=== PATIENT | male | born 1980 | race African-American/Black ===

== ENCOUNTER → 2018-03-22 09:48 | Outpatient (CLI) | payer OTHER, SELFPAY ==
[2018-03-22 11:23] LABS: Free T3, Triiodothyronine Free 3.63 pg/mL (2.77-5.27); T4 Total Thyroxine 7.44 ug/dL (5.5-11.0); T7 (Free Thyroxine Index) 2.96 (1.65-3.89); Triiodothryronine T3 Uptake 39.8 % (23.5-40.5)
[2018-03-22 11:37] LABS: Thyroid Stimulating Hormone 1.22 uIU/mL (0.47-4.68)
[2018-03-23 20:37] LABS: Testosterone, Free 1.33 ng/dL (0.87-5.47)
== END ==
PROVIDERS: PCP Family Medicine; Visit Provider Physician Assistant
DX: N52.9 Male erectile dysfunction, unspecified (principal)
CPT/HCPCS: 36415; 82040; 84270; 84402; 84403; 84436; 84443; 84479; 84481

== ENCOUNTER 2018-08-09 21:07 | Emergency (ER) | payer OTHER, SELFPAY ==
[2018-08-09 21:27] VITALS: BP 207/108; PULSE 114; RESP 18; TEMP 37.1; O2SAT 98; BMI 29.9
--- NOTE | 2018-08-09 21:32 | DI.US.S_ITS ---
PROCEDURE: US ABDOMEN COMPLETE INDICATIONS: EPIGASTRIC PAIN TECHNIQUE: Real-time scanning was performed of the abdominal and retroperitoneal organs, with image documentation. COMPARISON: None. FINDINGS: Liver: Liver is normal in size and homogeneous in echotexture. Gallbladder: Normal. Biliary ducts: Intrahepatic bile ducts are non-dilated. Extrahepatic bile duct caliber measures 6.1 mm. Normal is 6-7 mm or less in diameter, or 10 mm or less post-cholecystectomy. Pancreas: Visualized portions of the pancreas are sonographically normal. Spleen: Spleen is normal in size and homogeneous in echotexture. Kidneys: Kidneys are normal in size and echotexture. Right kidney measures 12.5 cm long; left kidney measures 13.0 cm long. No hydronephrosis or nephrolithiasis. No solid masses. Aorta: Visualized aorta is normal in caliber at less than 3 cm. distal aorta is not seen due to bowel gas. Iliacs: Not seen due to bowel gas IVC: Intrahepatic inferior vena cava is patent. Miscellaneous: No free abdominal fluid. IMPRESSION: Significant portions of the lower abdomen/pelvis are not well visualized due to bowel gas. No source of epigastric pain is seen. Dictated by: Jaison Chopra M.D. on 08/10/2018 at 9:41 Approved by: Jaison Chopra M.D. on 08/10/2018 at 9:42
[2018-08-09] MEDS: SODIUM CHLORIDE 0.9% 1,000 ML 1000 ML IV ×2 (21:49→23:58)
[2018-08-09] MEDS: PANTOPRAZOLE 40 MG VIAL IV (21:49)
[2018-08-09 21:53] LABS: PCO2 VBG 47.4 mmHg (45-50); pH VBG 7.35 (7.31-7.41)
[2018-08-09 21:54] LABS: HCO3 VBG 26 mmol/L (24-28); Oxygen Saturation VBG 56 % (70-75)
[2018-08-09 21:55] LABS: PO2 VBG 31 mmHg (35-45); Total CO2 VBG 28 mmol/L (24-29)
[2018-08-09 21:56] LABS: Add Manual Diff / Slide Review NO; Basophils Percent Auto 0.8 % (0-2); Eosinophils Percent Auto 0.1 % (2-4); Hematocrit 38.4 % (41-53); Hemoglobin 13.2 g/dL (13.5-17.5); Mean Corpuscular HGB Conc 34.2 % (30-36); Mean Corpuscular Hemoglobin 30.5 PG (26-34); Monocytes Percent Auto 7.7 % (3-14); Neutrophils Absolute Auto 6800 /uL (3000-5900); Neutrophils Percent Auto 81.4 % (50-75); Platelet Count 354 X10^3/uL (150-400); Red Blood Cell Count 4.32 X10^6/uL (4.5-5.9); Red Cell Distribution Width 12.5 % (11.6-14.8); White Blood Cell Count 8.3 X10^3/uL (4.5-11.0)
[2018-08-09] MEDS: METOCLOPRAMIDE 10 MG/2 ML INJ IV (21:59)
[2018-08-09 22:06] LABS: Alanine Aminotransferase 41 IU/L (21-72); Albumin 3.2 g/dL (3.5-5.0); Alkaline Phosphatase 78 U/L (38-126); Aspartate Aminotransferase 25 IU/L (17-59); BUN Creatinine Ratio 20.8 (6-22); Bilirubin Total 0.6 mg/dL (0.2-1.3); Blood Urea Nitrogen 25 mg/dL (9-20); Calcium 8.3 mg/dL (8.4-10.2); Carbon Dioxide 25 mmol/L (22-32); Chloride 102 mmol/L (98-107); Estimated Glomerular Filt Rate > 60.0 mL/min (>60); Globulin 3.1 g/dL (1.7-4.1); Glucose 298 mg/dL (70-100); HEMOLYSIS < 15 (0-50); Potassium 4.4 mmol/L (3.4-5.1); Sodium 138 mmol/L (137-145); Total Protein 6.3 g/dL (6.3-8.2)
[2018-08-09 22:07] LABS: Lipase < 10 U/L (23-300)
--- NOTE | 2018-08-09 22:28 | ED_ITS ---
HPI - Abdominal Pain General Chief Complaint: Abdominal Pain Stated Complaint: STOMACH PAIN NAUSEA Time Seen by Provider: 08/09/18 21:10 Source: patient and family Mode of arrival: ambulatory Limitations: no limitations History of Present Illness HPI narrative: 37-year-old nonsmoker presents with and chief complaint of ongoing epigastric pain for the past few days. He denies any provocation but states that a GI cocktail at an outside hospital helped. He has had episodes of nausea and vomiting. He denies any radiation of his pain. He has had similar pain in the past and has been told that he has ulcers and reflux. He denies any change in bowel habits. He has no dysuria, frequency or urgency. He denies any chest pain shortness of breath. He has been to another emergency department twice in the past 2 days and had normal lab work and improvement with a GI cocktail. He presents here today for 2nd opinion MD complaint: abdominal pain Onset (ago): day(s) Pain Consistency: constant Location: epigastric Severity: moderate Quality: cramping Radiation: none Migration to: no migration Relieving factors: medication Exacerbating factors: nothing Context: foreign travel Associated symptoms: nausea and vomiting Related Data Home Medications Medication Instructions Recorded Confirmed albuterol sulfate [Ventolin HFA] #0 11/07/17 prazosin 1 mg PO DAILY #0 01/31/18 Vitamin D3 2 tab PO DAILY 08/09/18 08/09/18 atorvastatin 1 tab PO DAILY 08/09/18 citalopram 30 mg PO DAILY 08/09/18 08/09/18 insulin glargine [Lantus U-100 30 u SC HS 08/09/18 Insulin] Previous Rx's Medication Instructions Recorded omeprazole 40 mg PO Q DAY #90 cap 01/08/17 losartan-hydrochlorothiazide 1 tab PO QDAY #30 tab 06/25/17 metoprolol succinate [Toprol XL] 25 mg PO QDAY #90 ter 11/30/17 [lidocaine patch 5%] 1 TD SEE INSTRUCTIONS #90 12/12/17 cyclobenzaprine 10 mg PO QDAY #90 tab 12/12/17 insulin aspart U-100 [Novolog 15 u SQ TIDCC #6 ea 12/12/17 Flexpen U-100 Insulin] atorvastatin 80 mg PO HS #90 tab 01/08/18 Test Strips - Freestyle str #100 01/31/18 metoprolol succinate 50 mg PO QDAY #90 ter 01/31/18 citalopram 20 mg tablet 30 mg PO QDAY #45 tab 03/08/18 hydrocodone-acetaminophen 1 tab PO Q4-6H PRN #14 tab 08/10/18 ondansetron [Zofran ODT] 4 mg PO Q6H PRN #14 tab 08/10/18 Allergies Allergy/AdvReac Type Severity Reaction Status Date / Time No Known Drug Allergies Allergy Verified 08/09/18 21:26 Review of Systems Review of Systems All systems reviewed & are unremarkable except as noted in HPI and below Constitutional Denies chills, Denies fever(s), Denies lethargy and Denies weakness Eyes Denies change in vision, Denies eye discharge, Denies irritation and Denies loss of vision ENT Ears, Nose, Mouth, and Throat: Denies change in voice, Denies neck pain and Denies sore throat Cardiovascular Denies chest pain, Denies irregular heart rhythm, Denies lightheadedness, Denies palpitations, Denies dyspnea, Denies dyspnea on exertion and Denies orthopnea Respiratory Denies cough, Denies dyspnea, Denies dyspnea on exertion and Denies wheezing Gastrointestinal Gastrointestinal: Reports abdominal pain, Denies change in bowel habits, Denies diarrhea, Reports nausea and Reports vomiting Genitourinary Denies hematuria, Denies flank pain, Denies urinary incontinence and Denies urinary urgency Musculoskeletal Denies neck pain Integumentary/Breasts Denies pruritus, Denies erythema, Denies rash and Denies wounds Neurologic Denies confusion, Denies loss of vision and Denies weakness Psychiatric Denies anxiety, Denies confusion, Denies depression, Denies homicidal ideation and Denies suicidal ideation Endocrine Denies palpitations Hematologic/Lymphatic Denies easy bruising Allergic/Immunologic Denies wheezing PFSH Medical History Chronic back pain (Chronic 2009) Eczema (Chronic 2009) Erectile dysfunction (Chronic) GERD (gastroesophageal reflux disease) (Chronic 2003) Hyperlipidemia (Chronic) Hypertension (Chronic 2006) Migraines (Chronic 2003) PTSD (post-traumatic stress disorder) (Chronic) Retinopathy (Chronic 2014) Type 1 diabetes (Chronic 2004) Shoulder pain (Resolved 2009) Surgical History Status post appendectomy (2000) Family History Brother Age: 40 Diabetes mellitus Hypertension Father Age: 80 COPD (chronic obstructive pulmonary disease) Hypertension Mother Cancer Diabetes mellitus Social History Smoking Status: Never smoker Exam Narrative Exam Narrative: 37-year-old obviously in some discomfort, clutching his epigastrium Initial Vital Signs Initial Vital Signs: Vital Signs Temperature 98.7 F 08/09/18 21:27 Pulse Rate 114 H 08/09/18 21:27 Respiratory Rate 18 08/09/18 21:27 Blood Pressure 207/108 H 08/09/18 21:27 Pulse Oximetry 98 08/09/18 21:27 Const General: cooperative and well developed Nutritional Appearance: well nourished Orientation: alert, awake, oriented x3 and not confused HENMT Head: normocephalic and atraumatic Ears: external ears normal and TM's normal bilaterally Nose: external nose normal and No nasal discharge Face and sinus: sinuses nontender, face symmetric, no sinus tenderness and No dry mucous membranes Mouth: oral mucosae normal and moist mucous membranes Teeth and gingiva: dentition normal Throat: tonsils normal and uvula midline Eyes General: appearance normal, both eyes and all related structures Eyelids: eyelids normal Conjunctivae: conjunctivae normal Sclera: sclerae normal Pupils: PERRL EOM: EOM intact bilaterally Neck Neck: normal visual inspection, trachea midline, No lymphadenopathy, No midline deformity and No JVD Lymphatic: No lymphedema Chest Chest: normal inspection of the chest Cardio Rate: regular rate Rhythm: regular rhythm Heart Sounds: no click, no gallops, no murmurs and no rubs Pulses: normal peripheral pulses GI Inspection: non-distended Palpation: soft, no hepatosplenomegaly, No guarding, No pulsatile mass and tender Auscultation: normal bowel sounds Back/Spine/Pelvis Back: No CVA tenderness Cervical Spine: cervical ROM normal and No pain with cervical ROM Thoracic/Lumbar Spine: thoracic and lumbar spine normal to inspection Neuro General: alert, oriented x3, gait normal and no focal motor deficits Speech: speech normal Psych Appearance: well kempt Mental Status: mental status grossly normal Attitude: cooperative Thought Content: normal and suicidality Judgment: judgment good Course Orders Ordered: ED Orders 08/09/18 21:32 US abdomen complete Stat 08/09/18 21:38 Venous Blood Gas Stat 08/09/18 21:45 Complete Blood Count AUTO DIFF Stat Comprehensive Metabolic Panel Stat Lipase Stat 08/09/18 23:51 CT abdomen pelvis w con Stat 08/10/18 00:10 Urine Microscopic Stat Discontinued Medications Hydromorphone HCl (Dilaudid) 1 mg IV NOW ONE Stop: 08/09/18 23:52 Last Admin: 08/09/18 23:58 Dose: 1 mg Sodium Chloride (Normal Saline 0.9%) 1,000 mls @ 1,000 mls/hr IV BOLUS ONE Stop: 08/09/18 22:30 Last Infusion: 08/09/18 23:34 Dose: 0 mls/hr Admin: 08/09/18 21:49 Dose: 1,000 mls/hr Sodium Chloride (Normal Saline 0.9%) 1,000 mls @ 1,000 mls/hr IV BOLUS ONE Stop: 08/10/18 00:50 Last Infusion: 08/10/18 02:36 Dose: 0 mls/hr Admin: 08/09/18 23:58 Dose: 1,000 mls/hr Labetalol HCl (Trandate) 20 mg IV NOW ONE Stop: 08/09/18 23:30 Last Admin: 08/09/18 23:40 Dose: 20 mg Losartan Potassium (Cozaar) 100 mg PO NOW ONE Stop: 08/10/18 02:43 Last Admin: 08/10/18 02:52 Dose: 100 mg Metoclopramide HCl (Reglan) 10 mg IV NOW ONE Stop: 08/09/18 21:57 Last Admin: 08/09/18 21:59 Dose: 10 mg Pantoprazole Sodium (Protonix) 40 mg IV NOW ONE Stop: 08/09/18 21:32 Last Admin: 08/09/18 21:49 Dose: 40 mg Vital Signs - 8 hr 08/09/18 21:27 08/09/18 22:30 08/09/18 23:04 Temperature 98.7 F 98.9 F Pulse Rate 114 H 119 H 120 H Respiratory Rate 18 18 12 Blood Pressure 207/108 H Blood Pressure [Left Arm] 183/91 H 193/109 H Pulse Oximetry 98 97 100 08/09/18 23:40 08/10/18 00:07 08/10/18 00:24 Temperature Pulse Rate 122 H 99 H 98 H Respiratory Rate 12 Blood Pressure 209/103 H 188/74 H Blood Pressure [Left Arm] 188/74 H Pulse Oximetry 100 08/10/18 00:33 08/10/18 02:34 08/10/18 02:52 Temperature Pulse Rate 98 H 103 H 103 H Respiratory Rate 16 12 Blood Pressure 182/98 H Blood Pressure [Left Arm] 150/72 H 182/98 H Pulse Oximetry 95 97 MDM - Abdominal Pain Differential Diagnosis Differential diagnosis: Likely abdominal pain, acute appendicitis, calculus of kidney, constipation, diverticulitis, endometriosis, gastroenteritis, pancreatitis and small bowel obstruction Medical Records Attestation: I reviewed the patient's medical records. Lab Data Attestation: I reviewed the patient's lab results. Result diagrams: 08/09/18 21:45 08/09/18 21:45 Lab Results 08/09/18 08/09/18 08/09/18 Range/Units 21:38 21:45 21:45 WBC 8.3 (4.5-11.0) X10^3/uL RBC 4.32 L (4.5-5.9) X10^6/uL Hgb 13.2 L (13.5-17.5) g/dL Hct 38.4 L (41-53) % MCV 89.0 (80-100) fL MCH 30.5 (26-34) PG MCHC 34.2 (30-36) % RDW 12.5 (11.6-14.8) % Plt Count 354 (150-400) X10^3/uL Neut % (Auto) 81.4 H (50-75) % Lymph % (Auto) 10.0 L (25-40) % Dewitt % (Auto) 7.7 (3-14) % Eos % (Auto) 0.1 L (2-4) % Baso % (Auto) 0.8 (0-2) % Neut # (Auto) 6800 H (4211-0346) /uL VBG pH 7.35 (7.31-7.41) VBG pCO2 47.4 (45-50) mmHg VBG pO2 31 L (35-45) mmHg VBG HCO3 26 (24-28) mmol/L VBG Total CO2 28 (24-29) mmol/L VBG O2 Saturation 56 L (70-75) % VBG Base Excess 1.0 (0-4) mmol/L Sodium 138 (137-145) mmol/L Potassium 4.4 (3.4-5.1) mmol/L Chloride 102 (98-107) mmol/L Carbon Dioxide 25 (22-32) mmol/L BUN 25 H (9-20) mg/dL Creatinine 1.20 (0.66-1.25) mg/dL Estimated GFR > 60.0 (>60) mL/min BUN/Creatinine Ratio 20.8 (6-22) Glucose 298 H (70-100) mg/dL Calcium 8.3 L (8.4-10.2) mg/dL Total Bilirubin 0.6 (0.2-1.3) mg/dL AST 25 (17-59) IU/L ALT 41 (21-72) IU/L Alkaline Phosphatase 78 (38-126) U/L Total Protein 6.3 (6.3-8.2) g/dL Albumin 3.2 L (3.5-5.0) g/dL Globulin 3.1 (1.7-4.1) g/dL Albumin/Globulin Ratio 1.0 (1.0-2.8) Lipase < 10 L (23-300) U/L Urine RBC (0-5/HPF) Urine WBC (0-5/HPF) Urine Bacteria (None) Ur Culture Indicated? Micro UA Comment 08/10/18 Range/Units 00:10 WBC (4.5-11.0) X10^3/uL RBC (4.5-5.9) X10^6/uL Hgb (13.5-17.5) g/dL Hct (41-53) % MCV (80-100) fL MCH (26-34) PG MCHC (30-36) % RDW (11.6-14.8) % Plt Count (150-400) X10^3/uL Neut % (Auto) (50-75) % Lymph % (Auto) (25-40) % Dewitt % (Auto) (3-14) % Eos % (Auto) (2-4) % Baso % (Auto) (0-2) % Neut # (Auto) (8063-7003) /uL VBG pH (7.31-7.41) VBG pCO2 (45-50) mmHg VBG pO2 (35-45) mmHg VBG HCO3 (24-28) mmol/L VBG Total CO2 (24-29) mmol/L VBG O2 Saturation (70-75) % VBG Base Excess (0-4) mmol/L Sodium (137-145) mmol/L Potassium (3.4-5.1) mmol/L Chloride (98-107) mmol/L Carbon Dioxide (22-32) mmol/L BUN (9-20) mg/dL Creatinine (0.66-1.25) mg/dL Estimated GFR (>60) mL/min BUN/Creatinine Ratio (6-22) Glucose (70-100) mg/dL Calcium (8.4-10.2) mg/dL Total Bilirubin (0.2-1.3) mg/dL AST (17-59) IU/L ALT (21-72) IU/L Alkaline Phosphatase (38-126) U/L Total Protein (6.3-8.2) g/dL Albumin (3.5-5.0) g/dL Globulin (1.7-4.1) g/dL Albumin/Globulin Ratio (1.0-2.8) Lipase (23-300) U/L Urine RBC 0-1/hpf (0-5/HPF) Urine WBC None seen (0-5/HPF) Urine Bacteria None seen (None) Ur Culture Indicated? Cult not indicated Micro UA Comment Not Reportable Point of care testing: Point of Care Testing Glucose POC 339 Urine Dip Bedside Urine Glucose 1000 mg/dl Bedside Urine Bilirubin - Negative Bedside Urine Ketone + 15 Urine Specific [place] 1.025 Bedside Urine Occult Blood ++ Bedside Urine pH 6.0 Bedside Urine Protein +++ 300 Bedside Urine Urobilinogen - Negative Bedside Urine Nitrite - Negative Bedside Urine Leukocytes - Negative Esterase Imaging Data CT scan - abdomen: Radiologist's impression: No acute process Discharge Plan Departure Patient Disposition: Home Clinical Impression: Acute epigastric pain, Dyspepsia Instructions: DI for Epigastric Pain Activity Restrictions/Additional Instructions: 1. Drink plenty of fluids with frequent small sips. 2. For the next 24 hours a clear liquid diet is advised. After that please employ a brat diet which would include bananas, rice, apples, toast. 3. Please take medications as directed. 4. Please follow-up with your doctor in the next 1-2 days. Call the office for an appointment. 5. Please return to the emergency Department for any worsening or persistent symptoms, such as increasing pain or fever. Prescriptions: New hydrocodone-acetaminophen 5-325 mg tablet 1 tab PO Q4-6H PRN (Reason: pain) Qty: 14 RF: 0 ondansetron [Zofran ODT] 4 mg tablet,disintegrating 4 mg PO Q6H PRN (Reason: nausea and vomiting) Qty: 14 RF: 0 No Action omeprazole 40 MG capsule,delayed release(DR/EC) 40 mg PO Q DAY Qty: 90 RF: 3 losartan-hydrochlorothiazide 100 MG/25 MG tablet 1 tab PO QDAY Qty: 30 RF: 3 albuterol sulfate [Ventolin HFA] 90 MCG/PUFF HFA aerosol inhaler Qty: 0 RF: 0 metoprolol succinate [Toprol XL] 25 MG tablet extended release 24 hr 25 mg PO QDAY Qty: 90 RF: 3 cyclobenzaprine 10 MG tablet 10 mg PO QDAY Qty: 90 RF: 3 [lidocaine patch 5%] 1 TD SEE INSTRUCTIONS Qty: 90 RF: 4 insulin aspart U-100 [Novolog Flexpen U-100 Insulin] 100 UNIT/1 ML insulin pen 15 u SQ TIDCC Qty: 6 RF: 0 atorvastatin 80 MG tablet 80 mg PO HS Qty: 90 RF: 3 prazosin 2 MG capsule 1 mg PO DAILY Qty: 0 RF: 0 Test Strips - Freestyle Qty: 100 RF: 3 metoprolol succinate 50 MG tablet extended release 24 hr 50 mg PO QDAY Qty: 90 RF: 3 citalopram 20 mg tablet 30 mg PO QDAY Qty: 45 RF: 3 atorvastatin 80 mg tablet 1 tab PO DAILY RF: 0 citalopram 20 mg tablet 30 mg PO DAILY RF: 0 insulin glargine [Lantus U-100 Insulin] 100 UNIT/1 ML solution 30 u SC HS RF: 0 Vitamin D3 2 tab PO DAILY RF: 0
[2018-08-09 22:30] VITALS: BP 183/91; PULSE 119; RESP 18; O2SAT 97
[2018-08-09 23:04] VITALS: BP 193/109; PULSE 120; RESP 12; TEMP 37.2; O2SAT 100
[2018-08-09 23:40] VITALS: BP 209/103; PULSE 122
[2018-08-09] MEDS: LABETALOL 20 MG/4 ML SYRINGE IV (23:40)
--- NOTE | 2018-08-09 23:51 | DI.CT.S_ITS ---
PROCEDURE: CT ABDOMEN PELVIS W CON INDICATIONS: severe abdominal pain TECHNIQUE: After the administration of intravenous contrast, 5 mm thick sections acquired from the diaphragm to the symphysis. 5 mm coronal and sagittal reformats were acquired. For radiation dose reduction, the following was used: automated exposure control, adjustment of mA and/or kV according to patient size. COMPARISON: None. FINDINGS: Image quality: Excellent. ABDOMEN: Lung bases: Lung bases are clear. Heart size is normal. Solid organs: Liver is normal in size and enhancement. Gallbladder appears normal. Biliary system is non dilated. Pancreas enhances normally. Spleen is normal in size and enhancement. No adrenal nodules. Kidneys demonstrate normal size and enhancement, without hydronephrosis. A small amount of contrast is excreted into the collecting system bilaterally. Peritoneum and bowel: Bowel loops demonstrate normal wall thickness and caliber. No free fluid or air. Nodes and vessels: No retroperitoneal or mesenteric adenopathy by size criteria. Aorta and inferior vena cava are normal in size. Miscellaneous: No ventral hernias. PELVIS: Genitourinary: Bladder wall thickness is normal. Miscellaneous: No inguinal hernias or adenopathy. Bones: No suspicious bony lesions. No vertebral body compression fractures. IMPRESSION: Normal for age, source of current symptoms is not seen. Dictated by: Jaison Chopra M.D. on 08/10/2018 at 9:43 Approved by: Jaison Chopra M.D. on 08/10/2018 at 9:44
[2018-08-09] MEDS: HYDROMORPHONE 1 MG INJ IV (23:58)
[2018-08-10 00:07] VITALS: BP 188/74; PULSE 99; RESP 12; O2SAT 100
[2018-08-10 00:24] VITALS: BP 188/74; PULSE 98
[2018-08-10 00:25] LABS: Bacteria Urine None Seen; WBC Urine None Seen (0-5/HPF)
[2018-08-10 00:33] VITALS: BP 150/72; PULSE 98; RESP 16; O2SAT 95
[2018-08-10 00:37] LABS: Culture Indicated Urine Cult Not Indicated; RBC Urine 0-1/HPF (0-5/HPF)
[2018-08-10 02:34] VITALS: BP 182/98; PULSE 103; RESP 12; O2SAT 97
[2018-08-10 02:52] VITALS: BP 182/98; PULSE 103
[2018-08-10] MEDS: LOSARTAN 50 MG TABLET 100 MG PO (02:52)
[2018-08-10 03:30] VITALS: BP 186/109; PULSE 103; RESP 12; TEMP 36.9; O2SAT 99
== END 2018-08-10 03:21 | disposition home or self-care (01) ==
PROVIDERS: Emergency Provider Emergency Medicine; PCP Family Medicine
DX: R10.13 Epigastric pain (principal)
CPT/HCPCS: 36591; 74177; 76700; 80053; 81003; 81015; 82805; 82962; 83690; 85025; 96361; 96374; 96375; 99283; 99285; C9113; J1170; J2765; Q9967